=== PATIENT | female | born 1965 | race Caucasian/White ===

== ENCOUNTER 2017-10-01 13:13 | Outpatient (CLI) ==
--- NOTE | 2017-10-01 14:05 | US ---
EXAM: Right lower extremity venous doppler. HISTORY: Right leg pain and swelling. COMPARISON: 01/22/2015. TECHNIQUE: Multiple grayscale and color doppler images were obtained. FINDINGS: There is partial color flow and compressibility within the right common femoral and proxim al to mid superficial femoral veins with lack of color flow, compressibility in the distal right supe rficial femoral vein and the right popliteal vein and peroneal vein. Right posterior tibial and ante rior tibial veins are not identified. There is color flow and compressibility in the right greater s aphenous and profunda veins. There is also lack of compressibility, color flow within the superficia l vein in the right calf. IMPRESSION: Extensive right lower extremity deep vein thrombus as described. Comment: Findings were discussed with the ordering provider's office at the time of exam completion by the agricultural research technologist. Note the patient has an inferior vena cava filter.
== END 2017-10-01 13:14 | disposition home or self-care (01) ==
LOC: RAD 13:13
PROVIDERS: ATTEND Physician Assistant
DX: M79.604 Pain in right leg (principal); I82.409 Acute embolism and thrombosis of unspecified deep veins of unspecified lower extremity
CPT/HCPCS: 36415; 85610; 85730

== ENCOUNTER 2017-10-06 10:21 | Outpatient (CLI) | END 2017-10-06 10:22 | disposition home or self-care (01) | LOC: LAB 10:21 | PROVIDERS: ATTEND Physician Assistant | DX: Z51.81 Encounter for therapeutic drug level monitoring (principal); Z79.01 Long term (current) use of anticoagulants; I82.409 Acute embolism and thrombosis of unspecified deep veins of unspecified lower extremity | CPT/HCPCS: 36415; 80053; 85025; 85610 ==

== ENCOUNTER 2017-10-12 10:33 | Outpatient (CLI) | END 2017-10-12 10:34 | disposition home or self-care (01) | LOC: LAB 10:33 | PROVIDERS: ATTEND Physician Assistant | DX: Z51.81 Encounter for therapeutic drug level monitoring (principal); Z79.01 Long term (current) use of anticoagulants; R74.8 Abnormal levels of other serum enzymes | CPT/HCPCS: 36415; 80053; 85610 ==

== ENCOUNTER 2017-10-15 09:41 | Outpatient (CLI) | END 2017-10-15 09:42 | disposition home or self-care (01) | LOC: LAB 09:41 | PROVIDERS: ATTEND Physician Assistant | DX: Z51.81 Encounter for therapeutic drug level monitoring (principal); Z79.01 Long term (current) use of anticoagulants | CPT/HCPCS: 36415; 85610 ==

== ENCOUNTER 2017-10-19 09:23 | Outpatient (CLI) | END 2017-10-19 09:24 | disposition home or self-care (01) | LOC: LAB 09:23 | PROVIDERS: ATTEND Physician Assistant | DX: Z51.81 Encounter for therapeutic drug level monitoring (principal); Z79.01 Long term (current) use of anticoagulants | CPT/HCPCS: 36415; 80053; 85610 ==

== ENCOUNTER 2017-10-22 10:28 | Outpatient (CLI) | END 2017-10-22 10:29 | disposition home or self-care (01) | LOC: LAB 10:28 | PROVIDERS: ATTEND Physician Assistant | DX: Z51.81 Encounter for therapeutic drug level monitoring (principal); Z79.01 Long term (current) use of anticoagulants | CPT/HCPCS: 36415; 85610 ==

== ENCOUNTER 2017-10-29 09:56 | Outpatient (CLI) | END 2017-10-29 09:57 | disposition home or self-care (01) | LOC: LAB 09:56 | PROVIDERS: ATTEND Physician Assistant | DX: Z51.81 Encounter for therapeutic drug level monitoring (principal); Z79.01 Long term (current) use of anticoagulants; R74.8 Abnormal levels of other serum enzymes | CPT/HCPCS: 36415; 80053; 85610 ==

== ENCOUNTER 2017-11-03 16:06 | Outpatient (CLI) ==
[2017-11-04 00:10] VITALS: BMI 39.3
--- NOTE | 2017-11-04 07:57 | DI ---
Exam: Two x-rays of the chest. Comparison: 11/01/2017. Reason for exam: Dyspnea. FINDINGS: No pneumothorax, pleural effusion, or focal consolidation. The cardiac silhouette is not enlarged. The imaged osseous structures appear grossly unremarkable without acute fracture. Impression: No acute cardiopulmonary process.
== END 2017-11-03 16:07 | disposition home or self-care (01) ==
LOC: LAB 16:06
PROVIDERS: ATTEND Physician Assistant
DX: R07.9 Chest pain, unspecified (principal); R06.00 Dyspnea, unspecified; R50.9 Fever, unspecified
CPT/HCPCS: 36415; 80053; 85007; 85025; 85610; 86308; 93005; 93010

== ENCOUNTER 2017-11-03 19:14 | Inpatient (IN) ==
--- NOTE | 2017-11-03 20:00 | ED.PDOC ---
General ED Provider: Dr. NILSA MANNING Chief Complaint: Abnormal Labs Stated Complaint: Patient was in [facility] over the weekend for the chest pain, CT chest for PE negative, stress test was negative, she was still not feeling good, went to PMD, ordered out patient Labs, Low WBC, so she was sent here for further evaluation, Patient also tells she is been having fever on and off. Time Seen by Physician: 19:58 Mode of Arrival: Walk-In Information Source: Patient Primary Care Provider: ROBIN OWENS Nursing and Triage Documentation Reviewed and Agree: Yes Reviewed sepsis parameters & appropriate labs ordered?: No System Inflammatory Response Syndrome: Not Applicable Sepsis Protocol: For patient's 13 years and over: Temp is 96.8 and below OR 101 and greater Pulse >90 BPM Resp >20/minute Acutely Altered Mental Status Are patient's symptoms suggestive of a new infection, such as: -Pneumonia -Skin, Soft Tissue -Endocarditis -UTI -Bone, Joint Infection -Implantable Device -Acute Abdominal Infection -Wound Infection -Meningitis -Blood Stream Catheter Infection -Unknown Miscellaneous Complaint Exam - Febrile Illness/Adult Complaint/Exam Symptoms Are: Resolved Timing: Intermittent Episodes Lasting: Days Initial Severity: Moderate Current Severity: Mild Aggravating: Reports: None Alleviating: Reports: None Associated Signs and Symptoms: Reports: Nausea. Denies: Headache, Fluid intake , Short of air, Cough, Sore throat, Vomiting, Chills, Diaphoresis, Dysuria, Arthralgia, Stiff neck, Myalgia, Rash, Altered mental status Pseudomonas Risk Factors: Reports: None Serious Bacterial Infection Risk Factors: Reports: None Current Antibiotic Use: No Related Surgical History: None Differential Diagnoses: Abdominal Infection, Abdominal Abscess, Bacteremia Review of Systems - Review Of Systems Constitutional: Reports: Fever, Malaise, Weakness Eyes: Reports: No symptoms Ears, Nose, Mouth, Throat: Reports: No symptoms Cardiac: Reports: No symptoms, Chest pain GI: Reports: No symptoms : Reports: No symptoms Musculoskeletal: Reports: No symptoms Skin: Reports: No symptoms Neurological: Reports: No symptoms Endocrine: Reports: No symptoms Hematologic/Lymphatic: Reports: No symptoms All Other Systems: Reviewed and Negative Past Medical History - Past Medical History Previously Healthy: Yes Endocrine: Reports: Dyslipidemia Cardiovascular: Reports: None Respiratory: Reports: None Hematological: Reports: Other (DVT, PE) Gastrointestinal: Reports: GERD Genitourinary: Reports: None Neuro/Psych: Reports: Anxiety Musculoskeletal: Reports: None Cancer: Reports: None Last Menstrual Period: now - Surgical History General Surgical History: Reports: None, Other - Family History Family History: Reports: None - Social History Smoking Status: Never smoker Hx Substance Use: No Alcohol Screening: None - Immunizations Tetanus Shot up to Date: Yes Physical Exam - Physical Exam Appearance: Well-appearing, No pain distress, Well-nourished Eyes: BETH, EOMI, Conjunctiva clear ENT: Ears normal, Nose normal, Oropharynx normal Respiratory: Airway patent, Breath sounds clear, Breath sounds equal, Respirations nonlabored Cardiovascular: RRR, Pulses normal, No rub, No murmur GI/: Soft, Nontender, No masses, Bowel sounds normal, No Organomegaly Musculoskeletal: Normal strength, ROM intact, No edema, No calf tenderness Skin: Warm, Dry, Normal color Neurological: Sensation intact, Motor intact, Reflexes intact, Cranial nerves intact, Alert, Oriented Psychiatric: Affect appropriate, Mood appropriate Critical Care Note - Critical Care Note Total Time (mins): 30 Course - Course Hematology/Chemistry: 11/03/17 20:11 11/03/17 20:11 Orders, Labs, Meds: Lab Review 11/03/17 11/03/17 11/03/17 20:02 20:11 20:11 WBC 1.43 L* RBC 4.01 L Hgb 11.4 L Hct 34.2 L MCV 85.3 MCH 28.4 MCHC 33.3 RDW Coeff of Ang 14.5 Plt Count 119 L Neutrophils % (Manual) 61.0 Lymphocytes % (Manual) 28.0 Monocytes % (Manual) 4.0 Metamyelocytes % 5.0 H Myelocytes % 1.0 Promyelocytes % 1.0 H Anisocytosis Not present Sodium 138 Potassium 3.9 Chloride 106 Carbon Dioxide 23 Anion Gap 12.9 BUN 10 Creatinine 0.75 Estimated GFR (MDRD) 81.00 BUN/Creatinine Ratio 13.33 Glucose 148 H Calcium 8.8 Total Bilirubin 0.5 AST 60 H ALT 65 Alkaline Phosphatase 148 H Total Protein 6.5 Albumin 3.0 L Globulin 3.5 Albumin/Globulin Ratio 0.86 Urine Color Urine Clarity Urine pH Ur Specific Hubbard Urine Protein Urine Glucose (UA) Urine Ketones Urine Blood Urine Nitrite Urine Bilirubin Urine Urobilinogen Ur Leukocyte Esterase Urine Microscopic RBC Ur Squamous Epith Cells Influ A Molecular Assay Negative by naat Influ B Molecular Assay Negative by naat 11/03/17 20:14 WBC RBC Hgb Hct MCV MCH MCHC RDW Coeff of Ang Plt Count Neutrophils % (Manual) Lymphocytes % (Manual) Monocytes % (Manual) Metamyelocytes % Myelocytes % Promyelocytes % Anisocytosis Sodium Potassium Chloride Carbon Dioxide Anion Gap BUN Creatinine Estimated GFR (MDRD) BUN/Creatinine Ratio Glucose Calcium Total Bilirubin AST ALT Alkaline Phosphatase Total Protein Albumin Globulin Albumin/Globulin Ratio Urine Color Yellow Urine Clarity Clear Urine pH 6.0 Ur Specific [place] 1.010 Urine Protein 1+ Urine Glucose (UA) 1+ Urine Ketones Negative Urine Blood Negative Urine Nitrite Negative Urine Bilirubin Negative Urine Urobilinogen 0.2 Ur Leukocyte Esterase Negative Urine Microscopic RBC 2-5 Ur Squamous Epith Cells 0-2 Influ A Molecular Assay Influ B Molecular Assay Orders Category Date Time Status CBC W/ AUTO DIFF Stat LAB 11/03/17 20:11 Completed COMPREHENSIVE METABOLIC PANEL Stat LAB 11/03/17 20:11 Completed FLU A/B MOLECULAR Stat LAB 11/03/17 20:02 Completed MANUAL DIFFERENTIAL Stat LAB 11/03/17 20:11 Completed URINALYSIS C & S IF INDICATED Stat LAB 11/03/17 20:[address] ABDOMEN/PELVIS WO CONTRAST Stat RADS 11/03/17 19:57 Completed Vital Signs: Temp Pulse Resp BP Pulse Ox 11/03/17 19:16 99.3 F 93 H 20 141/86 H 96 Departure - Departure Time of Disposition: 22:10 Disposition: ADMITTED INPATIENT Discharge Problem: Leukopenia Qualifiers: Leukopenia type: neutropenia Neutropenia type: unspecified Qualified Code(s): D70.9 - Neutropenia, unspecified Instructions: Fever in Adults (ED) Condition: Stable Pt referred to PMD for follow-up: No IPMP verified?: No Allergies/Adverse Reactions: Allergies aspirin Adverse Reaction (Verified 11/03/17 19:35) egg Adverse Reaction (Verified 11/03/17 19:35) Penicillins Adverse Reaction (Verified 11/03/17 19:35) Home Medications: Ambulatory Orders Acetaminophen with Codeine [Tylenol #3 Tab] 1 tab PO DIRECTED PRN 11/03/17 Alprazolam 0.25 mg PO DIRECTED PRN 11/03/17 Furosemide [Lasix Tab] 20 mg PO DAILY PRN 11/03/17 Omeprazole 20 mg PO DAILY 11/03/17 Rosuvastatin Calcium [Crestor] 10 mg PO BEDTIME 11/03/17 Thyroid,Pork [[place] Thyroid] 150 mg PO DAILY 11/03/17 Tramadol HCl 50 mg PO DAILY PRN 11/03/17 Warfarin Sodium 2.5 mg PO DIRECTED 11/03/17 Warfarin Sodium [Coumadin] 5 mg PO DIRECTED 11/03/17 Warfarin Sodium [Coumadin] 7.5 mg PO DIRECTED 11/03/17 Disposition Discussed With: Patient, Family
--- NOTE | 2017-11-03 20:50 | CT ---
EXAM: CT of the abdomen pelvis without contrast History: Abdominal pain and fever. Comparison: CT abdomen pelvis 12/18/2015 Technique: Multiplanar CT images through the abdomen pelvis were obtained without the administration of IV contrast Findings: Lung bases are clear. No acute osseous abnormalities. Severe degenerative disc disease L5 -S1. Stable small hepatic cyst. Cholelithiasis again noted. Spleen is unremarkable. No peripancreatic i nflammation. The adrenal glands are within normal limits. No renal stones and no hydronephrosis. I VC filter again seen in place. No change in the prominent collateral vessels within the abdomen and right abdominal wall. Bladder is not well distended. Adnexal structures appear appropriate for patient's age. No perirect al inflammation. No free air and no ascites. Tampon seen in place within the cervical region. Scat tered colonic stool. The appendix is not well visualized but there are no secondary signs of appendic itis. Impression: 1. No acute intra-abdominal or pelvic process. 2. Cholelithiasis. 3. Stable positioning of IVC filter. 4. Stable collateral vessels. 5. Severe degenerative disc disease at L5-S1.
[2017-11-03] MEDS: TYLENOL PO PRN (23:47)
[2017-11-03] MEDS: SODIUM CHLORIDE 1,000 ML IV SCH (23:47)
[2017-11-03] MEDS: VANCOMYCIN 1 GM in SODIUM CHLORIDE 250 ML IV SCH (23:50)
[2017-11-04 00:10] VITALS: BMI 39.3
[2017-11-04] MEDS ORDERED: COUMADIN PO ONE ×2 (00:38→00:40)
[2017-11-04] MEDS ORDERED: PRILOSEC PO ONE (00:44)
[2017-11-04] MEDS ORDERED: WARFARIN SODIUM 7.5 MG PO SCH ×2 (00:45→17:00)
[2017-11-04] MEDS ORDERED: ROCEPHIN ONE (00:48)
[2017-11-04] MEDS ORDERED: SODIUM CHLORIDE 50 ML IV ONE (00:52)
[2017-11-04] MEDS: ROCEPHIN 1 GM in SODIUM CHLORIDE 50 ML IV SCH ×3 (00:52→20:54)
[2017-11-04] MEDS ORDERED: CRESTOR PO ONE (00:57)
[2017-11-04] MEDS ORDERED: CRESTOR PO SCH (01:00)
[2017-11-04] MEDS ORDERED: COUMADIN PO SCH ×2 (01:00)
[2017-11-04] MEDS ORDERED: PRILOSEC PO SCH (09:00)
[2017-11-04] MEDS: TYLENOL PO PRN ×2 (10:04→17:47)
[2017-11-04] MEDS: VANCOMYCIN 1,500 MG in SODIUM CHLORIDE 500 ML IV SCH ×2 (10:04→21:38)
[2017-11-04] MEDS: THYROID PORK PO SCH (10:17)
--- NOTE | 2017-11-04 15:53 | CT ---
EXAM: CT of the chest without contrast History: Fever and neutropenia Comparison: Chest radiograph 11/03/2017, chest CT 01/22/2015 Technique: Multiplanar CT images through the thorax were obtained without the administration of IV c ontrast Findings: Heart size is normal. No pericardial effusion. Great vessels are unremarkable. No pathologically en larged thoracic lymph nodes. No consolidation. No pleural fluid and no pneumothorax. No lung masses or lung nodules. Within the visualized upper abdomen, cholelithiasis and IVC filter. No acute osseous abnormalities. Impression: No acute intrathoracic process
[2017-11-04] MEDS: COUMADIN PO SCH ×2 (17:18→17:21)
[2017-11-04] MEDS: VANCOMYCIN 1 GM in SODIUM CHLORIDE 250 ML IV SCH (17:42)
[2017-11-04] MEDS: CRESTOR PO SCH (21:38)
[2017-11-04] MEDS: PRILOSEC PO SCH (21:38)
[2017-11-05] MEDS: TYLENOL PO PRN ×3 (00:17→20:47)
[2017-11-05] MEDS: SODIUM CHLORIDE 1,000 ML IV SCH ×3 (00:17→17:00)
[2017-11-05] MEDS: VANCOMYCIN 1,500 MG in SODIUM CHLORIDE 500 ML IV SCH ×2 (10:25→21:24)
[2017-11-05] MEDS: THYROID PORK PO SCH (10:28)
--- NOTE | 2017-11-05 11:24 | PN ---
DATE OF SERVICE: 11/04/17 SUBJECTIVE: This is a 52-year-old female admitted with febrile neutropenia. White count is 1.35 with absolute neutrophil count 50, 79 and 60. The patient is on both antibiotics Rocephin and Vancomycin prophylactically. No cough or congestion. She had a fever episode last night which was 100.3. Blood cultures have been obtained and so far are negative. REVIEW OF SYSTEMS: CONSTITUTIONAL: Fever. No chills. HEENT: Normal. ENDOCRINE: No weight gain, no weight loss. CVS: No angina symptoms. No CHF symptoms. No palpitations. No atypical chest pain for CAD. No shortness of breath. No PND, no orthopnea. RESPIRATORY: No cough, no hemoptysis. GI: No nausea, no vomiting. No abdominal pain. : No hematuria. No polyuria. MUSCULOSKELETAL: No joint swelling. PSYCHIATRIC: Not anxious. No depression. No suicidal thoughts. No homicidal thoughts. SKIN: Intact. No rash. PHYSICAL EXAMINATION: V/S: BP 150/73, respiratory rate 20, heart rate 102, temperature 101.9, saturation 96. HEENT: Normocephalic, atraumatic. Mucosa dry. NECK: Supple. No JVD, no carotid bruit. No lymphadenopathy. LUNGS: Clear to auscultation. No rales or rhonchi. HEART: S1, S2 normal. No S3. No murmur, gallop or regurgitation. ABDOMEN: Soft, nontender. Bowel sounds active. No rigidity. No rebound or guarding. No CVA tenderness. EXTREMITIES: No pedal edema. No clubbing or cyanosis MUSCULOSKELETAL: No joint swelling. NEUROLOGIC: Awake, alert, oriented times three. No focal deficit. LYMPHATIC: No lymph nodes palpable. SKIN: Intact. LABS: White count 1.375, hemoglobin 11.1, hematocrit 33.4, platelet count 125. Sodium 138, potassium 3.9, chloride 106, bicarb 23, BUN 10, creatinine 0.75. Glucose 148. ASSESSMENT: 1. FEBRILE NEUTROPENIA 2. HISTORY OF PULMONARY EMBOLISM IN 2006 3. 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 ANXIETY DISORDER PLAN: 1. Will get blood cultures 2. Continue Vancomycin and Rocephin for prophylactic treatment 3. Recent chest pain 4. Stress test and echocardiogram is negative at outside facility 5. Coumadin to be dosed per PT/INR report TIME SPENT: More than 35 minutes MTDD
[2017-11-05] MEDS ORDERED: COUMADIN PO SCH ×4 (17:00→21:00)
[2017-11-05] MEDS: ROCEPHIN 1 GM in SODIUM CHLORIDE 50 ML IV SCH (20:31)
[2017-11-05] MEDS: PRILOSEC PO SCH (20:32)
[2017-11-05] MEDS: CRESTOR PO SCH (20:32)
[2017-11-05] MEDS: XANAX PO PRN (20:38)
[2017-11-05] MEDS: ULTRAM PO PRN (21:20)
[2017-11-06] MEDS: TYLENOL PO PRN ×4 (05:19→21:00)
[2017-11-06] MEDS: THYROID PORK PO SCH (10:56)
[2017-11-06] MEDS: VANCOMYCIN 1,500 MG in SODIUM CHLORIDE 500 ML IV SCH ×2 (10:56→21:49)
[2017-11-06] MEDS: SODIUM CHLORIDE 1,000 ML IV SCH (12:13)
--- NOTE | 2017-11-06 13:29 | US ---
EXAM: Ultrasound abdomen complete HISTORY: Leukopenia, fever COMPARISON: None TECHNIQUE: Complete ultrasound abdomen was performed FINDINGS: Evaluation limited due to bowel gas shadowing. Visualized portion aorta and inferior vena c domi appear normal. Visualized portion pancreas appears normal. Portions of the pancreas obscured se condary bowel gas shadowing. Liver normal in size and echogenicity. Main portal vein patent with no rmal direction of flow. Markedly limited evaluation of the gallbladder. There appear to be multipl e shadowing gallstones with the gallbladder very poorly visualized. Cannot assess for gallbladder wa ll thickening or pericholecystic fluid. Right kidney measures 10.9 cm in length. Left kidney measur es 10.4 cm in length. No hydronephrosis. Spleen normal in size and echogenicity measuring 12.3 cm i n length. IMPRESSION: 1. Markedly limited evaluation of the gallbladder. There appear to be multiple shadowing gallstones with the gallbladder very poorly visualized. Cannot assess for gallbladder wall thickening or peric holecystic fluid. 2. Otherwise unremarkable complete ultrasound abdomen, noting bowel gas shadowing limits evaluation.
[2017-11-06] MEDS: COUMADIN PO SCH ×2 (16:20→16:21)
[2017-11-06] MEDS: ROCEPHIN 1 GM in SODIUM CHLORIDE 50 ML IV SCH (20:52)
[2017-11-06] MEDS: PRILOSEC PO SCH (20:53)
[2017-11-06] MEDS: CRESTOR PO SCH (20:53)
[2017-11-06] MEDS ORDERED: SODIUM CHLORIDE 1,000 ML IV SCH (21:30)
[2017-11-06] MEDS: XANAX PO PRN (22:02)
[2017-11-06] MEDS: ULTRAM PO PRN (22:03)
[2017-11-07] MEDS: TYLENOL PO PRN (05:58)
[2017-11-07] MEDS ORDERED: DILAUDID 1 MG/ML SYRINGE IVP PRN (07:55)
[2017-11-07] MEDS ORDERED: ATIVAN PO PRN (07:56)
[2017-11-07] MEDS: THYROID PORK PO SCH (09:35)
[2017-11-07] MEDS: VANCOMYCIN 1,500 MG in SODIUM CHLORIDE 500 ML IV SCH ×2 (09:59→23:20)
[2017-11-07] MEDS ORDERED: DILAUDID 2 MG/ML SYRINGE IVP PRN (10:06)
[2017-11-07] MEDS ORDERED: ZOSYN 3.375 GM 3.375 GM in SODIUM CHLORIDE 50 ML IV SCH (21:00)
[2017-11-07] MEDS: PRILOSEC PO SCH (21:28)
[2017-11-07] MEDS: PROTONIX PO SCH (21:28)
[2017-11-07] MEDS: CRESTOR PO SCH (21:29)
[2017-11-07] MEDS ORDERED: AZACTAM ONE (22:11)
[2017-11-07] MEDS: AZACTAM 1 GM in SODIUM CHLORIDE 50 ML IV SCH (22:14)
[2017-11-08] MEDS ORDERED: AZACTAM ONE (05:37)
[2017-11-08] MEDS: PROTONIX PO SCH ×2 (05:46→16:57)
[2017-11-08] MEDS: AZACTAM 1 GM in SODIUM CHLORIDE 50 ML IV SCH ×3 (05:47→20:40)
[2017-11-08] MEDS: VANCOMYCIN 1,500 MG in SODIUM CHLORIDE 500 ML IV SCH ×2 (09:20→21:48)
[2017-11-08] MEDS: THYROID PORK PO SCH (09:20)
[2017-11-08] MEDS: PRILOSEC PO SCH (21:25)
[2017-11-08] MEDS: CRESTOR PO SCH (21:25)
[2017-11-09] MEDS: PROTONIX PO SCH (05:34)
[2017-11-09] MEDS: AZACTAM 1 GM in SODIUM CHLORIDE 50 ML IV SCH ×2 (05:34→13:20)
[2017-11-09] MEDS: THYROID PORK PO SCH (08:17)
[2017-11-09] MEDS: VANCOMYCIN 1,500 MG in SODIUM CHLORIDE 500 ML IV SCH (09:59)
[2017-11-09 10:05] VITALS: BP 127/76; TEMP 98
[2017-11-09] MEDS: SODIUM CHLORIDE 1,000 ML IV SCH (11:54)
--- NOTE | 2017-11-09 13:05 | PN ---
DATE OF SERVICE: 11/08/17 SUBJECTIVE: The patient was admitted with fever of unknown origin and withe the neutropenic precautions. WBC went up to now 3.37. Last fever the patient had 100.1 on at 6:00pm yesterday after that no fever. The patient's antibiotics is changed to the Azactam. So far the positive findings on the patient are Cholelithiasis and Cytomegalovirus was IgG positive and the patient has IV filter to help with the clots. Coumadin Coagulopathy is present 4.28 today. REVIEW OF SYSTEMS: CONSTITUTIONAL: No fever, no chills. HEENT: Normal. ENDOCRINE: No weight gain, no weight loss. CVS: No angina symptoms. No CHF symptoms. No palpitations. No atypical chest pain for CAD. No shortness of breath. No PND, no orthopnea. RESPIRATORY: No cough, no hemoptysis. GI: No nausea, no vomiting. No abdominal pain. : No hematuria. No polyuria. MUSCULOSKELETAL: No joint swelling. PSYCHIATRIC: Not anxious. No depression. No suicidal thoughts. No homicidal thoughts. SKIN: Intact. No rash. PHYSICAL EXAMINATION: V/S: Blood pressure 127/68, respiratory rate 18, heart rate 92, temperature 98.5 with saturation is 96%. HEENT: Normocephalic, atraumatic. Mucosa dry. NECK: Supple. No JVD, no carotid bruit. No lymphadenopathy. LUNGS: Clear to auscultation. No rales or rhonchi. HEART: S1, S2 normal. No S3. No murmur, gallop or regurgitation. ABDOMEN: Soft, nontender. Bowel sounds active. No rigidity. No rebound or guarding. No CVA tenderness. EXTREMITIES: No pedal edema. No clubbing or cyanosis MUSCULOSKELETAL: No joint swelling. NEUROLOGIC: Awake, alert, oriented times three. No focal deficit. LYMPHATIC: No lymph nodes palpable. SKIN: Intact. LABS: WBC 3.52, hgb 9.4, hct 28.6, plt count 123, sodium 142, potassium 3.6, chloride 111, bicarb 24, BUN 3, creatinine 0.62, glucose 113. AST 98, ALT 174. ASSESSMENT: 1. Fever of unknown origin 2. Slight hemolysis present with decreased hemiglobin and increase LDH and liver enzymes 3. Cytomegalovirus IgG positive 4. Recent chest pain with stress test negative for coronary artery disease 5. History of DVT PE on anticoagulation, right now Coumadin Coagulopathy 6. Obesity 7. Tonsillectomy 8. Anxiety disorder 9. Hypothyroidism PLAN: 1. Continue Azactam 2. Continue to hold the Coumadin 3. Continue Vancomycin 4. Protonix PO twice a day TIME SPENT: More than 35 minutes MTDD
--- NOTE | 2017-11-09 13:37 | PN ---
DATE OF SERVICE: 11/07/17 SUBJECTIVE: The patient was admitted with fever of unknown origin. The patient is still spiking fever, last one was on 11/05/17 8:45 of 102. After that it has all been lower but today evening she had a spike at 6:00pm of 100.1. Up and about walking. Serology avendano Cytomegalovirus IgG was positive, rest of the blood work so far is negative. Blood cultures, urine, toxicology, CT chest and elevated liver enzymes are present and ultrasound of the liver and gallbladder showed some gallbladder stones. No right upper quadrant tenderness, no nausea or vomiting. So far still of unknown origin which did explain to the patient. REVIEW OF SYSTEMS: CONSTITUTIONAL: No fever, no chills. HEENT: Normal. ENDOCRINE: No weight gain, no weight loss. CVS: No angina symptoms. No CHF symptoms. No palpitations. No atypical chest pain for CAD. No shortness of breath. No PND, no orthopnea. RESPIRATORY: No cough, no hemoptysis. GI: No nausea, no vomiting. No abdominal pain. : No hematuria. No polyuria. MUSCULOSKELETAL: No joint swelling. PSYCHIATRIC: Not anxious. No depression. No suicidal thoughts. No homicidal thoughts. SKIN: Intact. No rash. PHYSICAL EXAMINATION: V/S: Blood pressure 112/73, respiratory rate 18, heart rate 98, temperature 100.1 with saturation 98%. HEENT: Normocephalic, atraumatic. Mucosa dry. NECK: Supple. No JVD, no carotid bruit. No lymphadenopathy. LUNGS: Clear to auscultation. No rales or rhonchi. HEART: S1, S2 normal. No S3. No murmur, gallop or regurgitation. ABDOMEN: Soft, nontender. Bowel sounds active. No rigidity. No rebound or guarding. No CVA tenderness. EXTREMITIES: No pedal edema. No clubbing or cyanosis MUSCULOSKELETAL: No joint swelling. NEUROLOGIC: Awake, alert, oriented times three. No focal deficit. LYMPHATIC: No lymph nodes palpable. SKIN: Intact. LABS: Sodium 139, potassium 3.8, chloride 108, bicarb 23, BUN 3, creatinine 0.65, WBC 3.48, hgb 9.7, hct 29.2, plt count 111. ASSESSMENT: 1. Febrile neutropenia, fever of unknown origin 2. Cholelithiasis 3. DVT/PE termite treater helper anticoagulation 4. Coumadin Coagulopathy 5. Recent chest pain, stress test and echocardiogram is negative for the heart problems PLAN: 1. Given her consistent fever so far the source is only the Cytomegalovirus IgG is positive. Blood cultures are negative. Abdominal ultrasound did show the Cholelithiasis but no tenderness. The patient has one more spike over night I would to transfer the patient to the infectious disease specialist in [place]. TIME SPENT: More than 35 minutes MTDD
--- NOTE | 2017-11-09 13:48 | PN ---
DATE OF SERVICE: 11/06/17 SUBJECTIVE: The patient was admitted with leukopenia and neutropenia. The patient is still having the fever. Last fever was yesterday night at 9:00pm of 102. The patient is on Vancomycin and Rocephin prophylactically because of the neutropenic precautions. Cytomegalovirus serology came positive with the IgG. Rest of the test are negative so far. REVIEW OF SYSTEMS: CONSTITUTIONAL: No fever, no chills. HEENT: Normal. ENDOCRINE: No weight gain, no weight loss. CVS: No angina symptoms. No CHF symptoms. No palpitations. No atypical chest pain for CAD. No shortness of breath. No PND, no orthopnea. RESPIRATORY: No cough, no hemoptysis. GI: No nausea, no vomiting. No abdominal pain. : No hematuria. No polyuria. MUSCULOSKELETAL: No joint swelling. PSYCHIATRIC: Not anxious. No depression. No suicidal thoughts. No homicidal thoughts. SKIN: Intact. No rash. PHYSICAL EXAMINATION: V/S: Blood pressure 131/78, respiratory rate 20, heart rate 81, temperature 98.2 and saturation 99%. HEENT: Normocephalic, atraumatic. Mucosa dry. NECK: Supple. No JVD, no carotid bruit. No lymphadenopathy. LUNGS: Clear to auscultation. No rales or rhonchi. HEART: S1, S2 normal. No S3. No murmur, gallop or regurgitation. ABDOMEN: Soft, nontender. Bowel sounds active. No rigidity. No rebound or guarding. No CVA tenderness. EXTREMITIES: No pedal edema. No clubbing or cyanosis MUSCULOSKELETAL: No joint swelling. NEUROLOGIC: Awake, alert, oriented times three. No focal deficit. LYMPHATIC: No lymph nodes palpable. SKIN: Intact. LABS: Sodium 141, potassium 3.8, chloride 111, bicarb 23, BUN 5, creatinine 0.67 and glucose 148. WBC 2.66, hgb 9.9, hct 29.6, plt count 101. ASSESSMENT: 1. Febrile neutropenia most likely viral etiology prophylactically being treated with Rocephin and Vancomycin 2. Recent chest pain, stress test and echocardiogram are negative 3. History of DVT and PE PLAN: 1. Decrease fluids to 30ml per hour 2. Continue Vancomycin and Rocephin 3. Will do PT/INR in the morning 4. Daily I&O's TIME SPENT: More than 35 minutes MTDD
--- NOTE | 2017-11-09 13:57 | PN ---
DATE OF SERVICE: 11/05/17 SUBJECTIVE: The patient did have a 99.2 today temperature and then 99.2 again, below 100 since 9:00pm yesterday. WBC went up to 1.34 today. REVIEW OF SYSTEMS: CONSTITUTIONAL: Fever, no chills. HEENT: Normal. ENDOCRINE: No weight gain, no weight loss. CVS: No angina symptoms. No CHF symptoms. No palpitations. No atypical chest pain for CAD. No shortness of breath. No PND, no orthopnea. RESPIRATORY: No cough, no hemoptysis. GI: No nausea, no vomiting. No abdominal pain. : No hematuria. No polyuria. MUSCULOSKELETAL: No joint swelling. PSYCHIATRIC: Not anxious. No depression. No suicidal thoughts. No homicidal thoughts. SKIN: Intact. No rash. PHYSICAL EXAMINATION: V/S: Blood pressure 131/74, respiratory rate 20, heart rate 97, temperature 99.2 with saturation 98 on room air. HEENT: Normocephalic, atraumatic. Mucosa dry. NECK: Supple. No JVD, no carotid bruit. No lymphadenopathy. LUNGS: Clear to auscultation. No rales or rhonchi. HEART: S1, S2 normal. No S3. No murmur, gallop or regurgitation. ABDOMEN: Soft, nontender. Bowel sounds active. No rigidity. No rebound or guarding. No CVA tenderness. EXTREMITIES: No pedal edema. No clubbing or cyanosis MUSCULOSKELETAL: No joint swelling. NEUROLOGIC: Awake, alert, oriented times three. No focal deficit. LYMPHATIC: No lymph nodes palpable. SKIN: Intact. LABS: WBC 1.34, hgb 10.6, hct 31.9, plt count 117, sodium 138, potassium 3.9, chloride 106, bicarb 29, BUN 10, creatinine 0.75, glucose 148. AST 60. ASSESSMENT: 1. Febrile neutropenia prophylactic antibiotic treatment 2. Diabetes 3. Recent chest pain, being evaluated with stress test and echocardiogram with the [facility] 4. Febrile illness 5. History of DVT, PE and IV filter placement on group home anticoagulation 6. Hypothyroidism PLAN: 1. Continue the Rocephin and Vancomycin 2. Will check for the Cytomegalovirus, [place] Virus 3. Hepatitis Panel TIME SPENT: More than 35 minutes MTDD
--- NOTE | 2017-12-29 19:37 | DS ---
DATE OF SERVICE: 11/09/17 FINAL DIAGNOSIS: 1. FEVER OF UNKNOWN ORIGIN 2. HEMOLYSIS WITH INCREASED LVH AND LIVER ENZYMES 3. CYTOMEGALOVIRUS IGG POSITIVE 4. RECENT CHEST PAIN WITH STRESS TEST NEGATIVE AT OTHER FACILITY IN [place] 5. 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 OBESITY 7. TONSILLECTOMY 8. ANXIETY 9. HYPOTHYROIDISM 10. FEBRILE LEUKOPENIA AND NEUTROPENIA 11. HISTORY OF PULMONARY EMBOLISM IN 2006 DISCHARGE INSTRUCTIONS: Discharge home. Return to [facility] for PT/INR and lab work. Followup at [facility] on 11/12/17 for followup. MEDICATIONS AT DISCHARGE: Tylenol Xanax Lasix Omeprazole Crestor Thyroid Tramadol Coumadin DO NOT TAKE YOUR COUMADIN UNTIL INSTRUCTED BY THE PHYSICIAN NEW PRESCRIPTIONS: None as cultures did not have any growth. DIET INSTRUCTIONS: Healthy Heart ACTIVITY: Get plenty of rest at home. Gradually increase activity as tolerated. DISEASE SPECIFIC EDUCATION: Fpc anticoagulation and bleeding has been discussed, verbalized understanding. Fever of unknown origin and needing further followup with the specialist has been discussed and verbalized understanding. HOSPITAL COURSE: This is a 52-year-old female came to the emergency room with fever, chest pain, shortness of breath. She was found to have severely low white count 1.43, platelets 119. INR 5.6. Chemistries were normal. With the given neutropenia and fever of 101-102, the patient was admitted to the hospital with febrile neutropenia, started on prophylactic antibiotics. The patient recently had a stress test and echocardiogram at an outside facility for chest pain. The patient is treated with Vancomycin, Azactam and breathing treatment. The patient two days ago was in a [facility] with chest pain and shortness of breath. They admitted the patient and did stress test and echo and all was negative and the patient was sent home. At home she started having fever, chills , and cough, came to the emergency room and was found to be neutropenic and thrombocytenic. All the records from [facility] were obtained and reviewed. No source of infection was found during the initial evaluation. Urine was negative. CT of abdomen and pelvis was done. The patient was given prophylactic antibiotics. Gradually the white count was getting better. The patient did have fever of 102 and 101 after two days gap. Serology showed IgG, Cytomegalovirus antibody present. Gradually the PT/INR was getting better. BUN and creatinine was normal. AST, ALT was elevated but gradually getting better. Vancomycin trough levels were done. Urine culture did not grow any pathogens. Blood did not grow any pathogens. Again with the patient care, fever of unknown origin, Cytomegalovirus IgG serology and cholelithiasis but the patient did not have any cholecystitis, complaints of right upper quadrant pain, nausea or vomiting so the patient was empirically treated and as the patient was afebrile for almost two days, the patient was discharged home. TIME SPENT: MORE THAN 65 MINUTES MTDD
== END 2017-11-09 14:40 | disposition home or self-care (01) | DRG 864 ==
LOC: ED 19:14 → MEDSURG B 22:40
PROVIDERS: ADMIT Emergency Medicine; ATTEND Emergency Medicine
DX: R50.9 Fever, unspecified (principal); D68.32 Hemorrhagic disorder due to extrinsic circulating anticoagulants; D70.9 Neutropenia, unspecified; R11.0 Nausea; R76.0 Raised antibody titer; E66.9 Obesity, unspecified; R58 Hemorrhage, not elsewhere classified; T45.515A Adverse effect of anticoagulants, initial encounter; K80.20 Calculus of gallbladder without cholecystitis without obstruction; F41.9 Anxiety disorder, unspecified; E03.9 Hypothyroidism, unspecified; Z86.718 Personal history of other venous thrombosis and embolism; Z86.711 Personal history of pulmonary embolism; Z79.01 Long term (current) use of anticoagulants; Z86.79 Personal history of other diseases of the circulatory system; Z95.828 Presence of other vascular implants and grafts
CPT/HCPCS: 36415; 80053; 80074; 80202; 81001; 82607; 82728; 82746; 83010; 83540; 83550; 83615; 84466; 85007; 85025; 85045; 85610; 85705; 86430; 86617; 86644; 86645; 86663; 87040; 87502; 87798; 99232; 99233; 99239; 99284

== ENCOUNTER 2017-11-12 11:39 | Outpatient (CLI) | END 2017-11-12 11:40 | disposition home or self-care (01) | LOC: LAB 11:39 | PROVIDERS: ATTEND Emergency Medicine | DX: Z51.81 Encounter for therapeutic drug level monitoring (principal); Z79.01 Long term (current) use of anticoagulants | CPT/HCPCS: 36415; 85610 ==

== ENCOUNTER 2017-11-17 11:04 | Outpatient (CLI) | END 2017-11-17 11:05 | disposition home or self-care (01) | LOC: LAB 11:04 | PROVIDERS: ATTEND Physician Assistant | DX: Z51.81 Encounter for therapeutic drug level monitoring (principal); Z79.01 Long term (current) use of anticoagulants; R79.89 Other specified abnormal findings of blood chemistry; E03.9 Hypothyroidism, unspecified | CPT/HCPCS: 36415; 84439; 84443; 85610 ==

== ENCOUNTER 2017-11-19 12:54 | Outpatient (CLI) ==
--- NOTE | 2017-11-20 12:32 | MRI ---
Examination: MRI of the lumbar spine without contrast 11/19/2017 Clinical information: Parasthesias. Right foot numbness. Comparison: None. TECHNIQUE: Sagittal and axial T1 and T2W imaging, sagittal STIR and coronal T2W sequences were perfo rmed. FINDINGS: The conus medullaris is normal in signal, location and morphology terminating at the L1 ve rtebral body level. Cystic signal intensity within the central aspect of the lower thoracic spinal c ord T10-T11 level has the appearance of a syrinx measuring up to 3.5 mm transverse. A dedicated MRI of the thoracic spine could be performed for further characterization. Contrast material should admi nistered at that time. There is a 2 mm retrolisthesis of L3 on L4. The lumbar vertebrae are otherwi se normal in height and AP alignment. There are chronic lower thoracic Schmorl's nodes. There is mi ld loss of disc height at L2-L3 through L4-L5 with disc desiccation. Severe loss of disc height at L 5-S1 with disc desiccation and minor endplate irregularity. There is no acute lumbar vertebral body compression fracture or abnormal marrow edema. There are enlarged gonadal veins. An IVC filter is identified. At the T10-T11 level, there is a lobular disc bulge. Right greater than left facet hypertrophy. No central spinal canal stenosis or foraminal stenosis. At the T11-T12 level, there is a moderate-sized left paracentral disc herniation which extends above and slightly below the disc level indenting the cord. There is mild left greater than right facet hy pertrophy. No central spinal canal stenosis or foraminal stenosis. At the L1-L2 level, there is minor bilateral facet arthropathy. At the L2-L3 level, there is a minimal disc bulge. There is a small left foraminal and far lateral d isc protrusion which contacts the left L2 nerve root at the lateral aspect of the neural foramen caus ing mild foraminal stenosis. Mild right greater than left hypertrophic facet arthropathy. No centra l spinal canal stenosis. At the L3-L4 level, there is a diffuse disc bulge eccentric left. There is mild left greater than ri ght facet hypertrophy. No central spinal canal stenosis. There is no overt foraminal stenosis. At the L4-L5 level, there is a diffuse disc bulge eccentric left. There is a modest sized central di sc protrusion which slightly indents the thecal sac. There is mild bilateral facet hypertrophy. No central spinal canal stenosis. There is no overt foraminal stenosis. At the L5-S1 level, there is a diffuse spondylotic disc bulge. There is a central osteophyte eccentr ic left which does not cause significant central spinal canal stenosis. There is mild right greater than left facet hypertrophy. There is mild bilateral foraminal stenosis. Impression: 1. L4-L5 central disc protrusion. No significant central spinal canal stenosis. 2. Small left L2-L3 foraminal and far lateral disc protrusion contacts the left L2 nerve root at the lateral aspect of the neural foramen causing mild foraminal stenosis. 3. Mild bilateral L5-S1 foraminal stenosis. 4. Lower thoracic spinal cord syrinx at the T10-T11 level. Consider a dedicated MRI of the thoracic spine with and without contrast for further characterization. This unexpected finding will be conveyed to the refer ring clinician. 5. T11-T12 left paracentral disc herniation indents the cord without causing central spinal canal st enosis.
== END 2017-11-19 12:55 | disposition home or self-care (01) ==
LOC: RAD 12:54
PROVIDERS: ATTEND Physician Assistant
DX: R20.2 Paresthesia of skin (principal)

== ENCOUNTER 2017-11-23 14:17 | Outpatient (CLI) | END 2017-11-23 14:18 | disposition home or self-care (01) | LOC: LAB 14:17 | PROVIDERS: ATTEND Physician Assistant | DX: E03.9 Hypothyroidism, unspecified (principal) | CPT/HCPCS: 36415; 84439; 84443; 84480; 84481 ==

== ENCOUNTER 2017-11-26 12:44 | Outpatient (CLI) ==
--- NOTE | 2017-11-27 06:16 | MRI ---
EXAM: MRI thoracic spine without and with IV contrast. DATE: 11/26/2017. HISTORY: Abnormal MRI. Parasthesias. Right foot numbness TECHNIQUE: Sagittal and axial T1W, T2W, and T1W postcontrast sequences of the thoracic spine along w ith sagittal IR and coronal T2W sequences were obtained using 1.2 June magnet. No IV contrast. Note: Grainy appearance on multiple sequences limit sensitivity of the examination. COMPARISON: MRI L-spine 19 Nov 2017. PA/lateral chest [address] chest [address] ab domen/pelvis 03 November 2016. Abnormal ultrasound 06 November 2017. FINDINGS: Sagittal counting dwarf tree grower sequence of the cervical and upper thoracic spine reveals straight ening of the upper cervical lordosis. Posterior disc/osteophyte complexes appear to cause at least m ild central canal stenoses at C4-5 and C5-6. No cervical cord edema, syrinx, myelomalacia, or neopla sm is evident. There is no Chiari 1 malformation. No distinct brain abnormality is detected. No ne ck mass or lymphadenopathy is apparent on these limited images. There are 12 thoracic vertebra with paired ribs. No acute T-spine fracture, subluxation, osseous mal ignancy, or jumped facet is evident. Small osteophytes noted at several thoracic vertebra. Chronic Schmorl's nodes are displayed at T8, T10, and T12. Bone marrow signal is overall normal. Minor disc space narrowing is seen at T3-4, T4-5, and T7-8. Conus medullaris terminates at T12-L1. Narrow T2W bright vertical band located in the center of the spinal cord extends from T2 inferior endplate to t he T4 inferior endplate. Superiorly this syrinx is 1 mm or less diameter. Between T10 midbody and T 11 midbody (a 20 mm length), the syrinx dilates to 3.5 mm maximum diameter, with tapering of each ban d. No enhancing neoplasm or abnormal enhancement is identified within the spinal cord or nerve roots . No distinct evidence of myelomalacia or cord edema. Trachea, thoracic esophagus, thoracic aorta are unremarkable. No distinct lung mass, pneumonia, or p leural effusion is detected. Heart size is upper normal. No pericardial effusion is identified. Wi thin the left lobe liver, there is a T2W bright, T1W dark, 12 x 9 mm focus best seen on axial images #29 and #30 - - which corresponds with a water density (HU = 3) focus on CT scan. Visible portions o f the spleen, adrenal glands and kidneys reveal no abnormality. Several small stones are visible in the gallbladder. CBD is 6.2 mm diameter at the pancreatic head level, without distinct focal stones or mass. No distinct intrahepatic biliary duct dilatation. Segmental analysis: C7-T1: No disc protrusion or central stenosis. T1-2: Normal, except for minor left facet arthropathy. T2-3: No disc protrusion, central stenosis or foraminal stenosis. T3-4: No disc protrusion, central stenosis or foraminal stenosis. T4-5: Minimal posterior disc bulge does not cause cord compression, central stenosis or foraminal st enosis. T5-6: Minimal posterior disc bulge does not cause cord compression, central stenosis or foraminal st enosis. T6-7: No disc protrusion, central stenosis or foraminal stenosis. There is minor facet arthropathy. T7-8: No disc protrusion, central stenosis or foraminal stenosis. T8-9: No disc protrusion, central stenosis or foraminal stenosis. T9-10: Minor posterior disc bulge does not cause cord compression, central stenosis or foraminal nilda nosis. T10-11: No disc protrusion or central stenosis. Mild facet arthropathy causes minor right foraminal narrowing. T11-12: Midline disc protrusion (4.3 mm AP x 7 mm transverse) approaches the anterior margin of the cord. No central canal stenosis. Each foramen is patent. IMPRESSIONS: 1. Thoracic cord syrinx is most pronounced at T10 and T11. No associated mass or inflammation. 2. Thoracic spine multilevel DDD and facet arthropathy. No central canal stenosis. 3. Mild bone marrow fatty infiltration 4. C-spine DDD and mild central stenoses at C4-5 and C5-6. 5. Benign appearing left hepatic lobe cyst. 6. Cholelithiasis. Distal CBD mild dilatation, but no definitive choledocholithiasis. If symptoms warrant further evaluation, an MRCP could be obtained.
== END 2017-11-26 12:45 | disposition home or self-care (01) ==
LOC: RAD 12:44
PROVIDERS: ATTEND Physician Assistant
DX: Z51.81 Encounter for therapeutic drug level monitoring (principal); Z79.01 Long term (current) use of anticoagulants; R93.8 Abnormal findings on diagnostic imaging of other specified body structures; E03.9 Hypothyroidism, unspecified
CPT/HCPCS: 36415; 82565

== ENCOUNTER 2017-11-30 12:19 | Outpatient (CLI) ==
--- NOTE | 2017-11-30 15:49 | US ---
EXAM: Left lower extremity venous Doppler HISTORY: Concern for DVT with left leg edema. COMPARISON: Venous Doppler 10/01/2017 TECHNIQUE: Sonographic and Doppler evaluation of the left lower extremity vessels from the common fe moral through the anterior tibial veins were obtained. Augmentation and compression techniques were also performed. FINDINGS: There is spontaneous Doppler flow seen in the left lower extremity veins from the common f emoral through the anterior tibial veins. There is normal compression and augmentation throughout th e lower extremity veins. Sonographic appearance of the soft tissues are unremarkable. IMPRESSION: No left lower extremity thrombus
== END 2017-11-30 12:20 | disposition home or self-care (01) ==
LOC: LAB 12:19
PROVIDERS: ATTEND Physician Assistant
DX: Z51.81 Encounter for therapeutic drug level monitoring (principal); Z79.01 Long term (current) use of anticoagulants; R60.0 Localized edema; E03.9 Hypothyroidism, unspecified
CPT/HCPCS: 36415; 84443; 85610

== ENCOUNTER 2017-12-04 08:51 | Outpatient (CLI) | END 2017-12-04 08:52 | disposition home or self-care (01) | LOC: LAB 08:51 | PROVIDERS: ATTEND Physician Assistant | DX: Z51.81 Encounter for therapeutic drug level monitoring (principal); Z79.01 Long term (current) use of anticoagulants; K80.20 Calculus of gallbladder without cholecystitis without obstruction; E03.9 Hypothyroidism, unspecified | CPT/HCPCS: 36415; 80053; 84443; 85025; 85610 ==

== ENCOUNTER 2017-12-11 10:38 | Outpatient (CLI) | END 2017-12-11 10:39 | disposition home or self-care (01) | LOC: LAB 10:38 | PROVIDERS: ATTEND Physician Assistant | DX: Z51.81 Encounter for therapeutic drug level monitoring (principal); Z79.01 Long term (current) use of anticoagulants; M79.604 Pain in right leg; M79.605 Pain in left leg | CPT/HCPCS: 36415; 85610; 86430 ==

== ENCOUNTER 2017-12-15 09:37 | Outpatient (CLI) | END 2017-12-15 09:38 | disposition home or self-care (01) | LOC: LAB 09:37 | PROVIDERS: ATTEND Physician Assistant | DX: E03.9 Hypothyroidism, unspecified (principal); Z51.81 Encounter for therapeutic drug level monitoring; Z79.01 Long term (current) use of anticoagulants | CPT/HCPCS: 36415; 84443; 85610 ==

== ENCOUNTER 2017-12-21 13:39 | Outpatient (CLI) | END 2017-12-21 13:40 | disposition home or self-care (01) | LOC: LAB 13:39 | PROVIDERS: ATTEND Physician Assistant | DX: Z51.81 Encounter for therapeutic drug level monitoring (principal); Z79.01 Long term (current) use of anticoagulants; E03.9 Hypothyroidism, unspecified | CPT/HCPCS: 36415; 84443; 85610 ==

== ENCOUNTER 2017-12-29 11:43 | Outpatient (CLI) | END 2017-12-29 11:44 | disposition home or self-care (01) | LOC: LAB 11:43 | PROVIDERS: ATTEND Physician Assistant | DX: Z51.81 Encounter for therapeutic drug level monitoring (principal); Z79.01 Long term (current) use of anticoagulants; E03.9 Hypothyroidism, unspecified | CPT/HCPCS: 36415; 84443; 85610 ==

== ENCOUNTER 2018-01-07 09:04 | Outpatient (CLI) | END 2018-01-07 09:05 | disposition home or self-care (01) | LOC: LAB 09:04 | PROVIDERS: ATTEND Physician Assistant | DX: E03.9 Hypothyroidism, unspecified (principal); Z51.81 Encounter for therapeutic drug level monitoring; Z79.01 Long term (current) use of anticoagulants | CPT/HCPCS: 36415; 84443; 85610 ==

== ENCOUNTER 2018-01-15 13:39 | Outpatient (CLI) | END 2018-01-15 13:40 | disposition home or self-care (01) | LOC: LAB 13:39 | PROVIDERS: ATTEND Physician Assistant | DX: Z51.81 Encounter for therapeutic drug level monitoring (principal); Z79.01 Long term (current) use of anticoagulants; E03.9 Hypothyroidism, unspecified | CPT/HCPCS: 36415; 84443; 85610 ==

== ENCOUNTER 2018-01-22 12:31 | Outpatient (CLI) | END 2018-01-22 12:32 | disposition home or self-care (01) | LOC: LAB 12:31 | PROVIDERS: ATTEND Physician Assistant | DX: E03.9 Hypothyroidism, unspecified (principal); Z51.81 Encounter for therapeutic drug level monitoring; Z79.01 Long term (current) use of anticoagulants | CPT/HCPCS: 36415; 84443; 85610 ==

== ENCOUNTER 2018-02-03 15:12 | Outpatient (CLI) | END 2018-02-03 15:13 | disposition home or self-care (01) | LOC: LAB 15:12 | PROVIDERS: ATTEND Physician Assistant | DX: Z51.81 Encounter for therapeutic drug level monitoring (principal); Z79.01 Long term (current) use of anticoagulants | CPT/HCPCS: 36415; 85610 ==

== ENCOUNTER 2018-02-04 14:51 | Outpatient (CLI) ==
--- NOTE | 2018-02-04 16:00 | US ---
EXAM: Right lower extremity venous Doppler History: Right lower extremity edema. Comparison: Right lower extremity venous Doppler 10/01/2017 Technique: Multiple sonographic images through the right lower extremity were obtained. Color duple x Doppler was used to interrogate vascular flow. Findings: Partial flow with partial compression involving the right common femoral, greater saphenous , profunda, superficial femoral and popliteal veins. No flow with no compression involving the right peroneal vein. Impression: Right lower extremity venous thrombosis, similar to the prior study. Results were communicated to Brooklynn Quispe by the technologist after the examination.
== END 2018-02-04 14:52 | disposition home or self-care (01) ==
LOC: RAD 14:51
PROVIDERS: ATTEND Physician Assistant
DX: R60.0 Localized edema (principal)

== ENCOUNTER 2018-02-10 10:15 | Outpatient (CLI) | END 2018-02-10 10:16 | disposition home or self-care (01) | LOC: LAB 10:15 | PROVIDERS: ATTEND Physician Assistant | DX: D64.9 Anemia, unspecified (principal); R73.9 Hyperglycemia, unspecified; Z51.81 Encounter for therapeutic drug level monitoring; Z79.01 Long term (current) use of anticoagulants; E03.9 Hypothyroidism, unspecified | CPT/HCPCS: 36415; 83036; 84443; 85025; 85610 ==

== ENCOUNTER 2018-02-25 16:12 | Outpatient (CLI) | END 2018-02-25 16:13 | LOC: LAB 16:12 | PROVIDERS: ATTEND Physician Assistant | DX: Z51.81 Encounter for therapeutic drug level monitoring (principal); Z79.01 Long term (current) use of anticoagulants | CPT/HCPCS: 36415; 85610 ==

== ENCOUNTER 2018-03-04 08:48 | Outpatient (CLI) | END 2018-03-04 08:49 | disposition home or self-care (01) | LOC: LAB 08:48 | PROVIDERS: ATTEND Physician Assistant | DX: Z51.81 Encounter for therapeutic drug level monitoring (principal); Z79.01 Long term (current) use of anticoagulants | CPT/HCPCS: 36415; 85610 ==

== ENCOUNTER 2018-03-11 14:53 | Outpatient (CLI) | END 2018-03-11 14:54 | disposition home or self-care (01) | LOC: LAB 14:53 | PROVIDERS: ATTEND Physician Assistant | DX: Z51.81 Encounter for therapeutic drug level monitoring (principal); Z79.01 Long term (current) use of anticoagulants | CPT/HCPCS: 36415; 85610 ==

== ENCOUNTER 2018-03-19 12:06 | Outpatient (CLI) | END 2018-03-19 12:07 | disposition home or self-care (01) | LOC: LAB 12:06 | PROVIDERS: ATTEND Physician Assistant | DX: E78.5 Hyperlipidemia, unspecified (principal); E78.2 Mixed hyperlipidemia; Z51.81 Encounter for therapeutic drug level monitoring; Z79.01 Long term (current) use of anticoagulants | CPT/HCPCS: 36415; 80053; 80061; 84443; 85610 ==

== ENCOUNTER 2018-03-30 09:07 | Outpatient (CLI) | END 2018-03-30 09:08 | disposition home or self-care (01) | LOC: LAB 09:07 | PROVIDERS: ATTEND Physician Assistant | DX: Z51.81 Encounter for therapeutic drug level monitoring (principal); Z79.01 Long term (current) use of anticoagulants | CPT/HCPCS: 36415; 85610 ==

== ENCOUNTER 2018-03-31 10:08 | Outpatient (CLI) | END 2018-03-31 10:09 | disposition home or self-care (01) | LOC: LAB 10:08 | PROVIDERS: ATTEND Physician Assistant | DX: I82.509 Chronic embolism and thrombosis of unspecified deep veins of unspecified lower extremity (principal) | CPT/HCPCS: 36415; 85610 ==

== ENCOUNTER 2018-04-01 10:17 | Outpatient (CLI) | END 2018-04-01 10:18 | disposition home or self-care (01) | LOC: LAB 10:17 | PROVIDERS: ATTEND Physician Assistant | DX: I82.509 Chronic embolism and thrombosis of unspecified deep veins of unspecified lower extremity (principal) | CPT/HCPCS: 36415; 85610 ==

== ENCOUNTER 2018-04-07 13:44 | Outpatient (CLI) | END 2018-04-07 13:45 | disposition home or self-care (01) | LOC: LAB 13:44 | PROVIDERS: ATTEND Physician Assistant | DX: Z51.81 Encounter for therapeutic drug level monitoring (principal); Z79.01 Long term (current) use of anticoagulants | CPT/HCPCS: 36415; 85610 ==

== ENCOUNTER 2018-04-09 16:22 | Outpatient (CLI) | END 2018-04-09 16:23 | disposition home or self-care (01) | LOC: LAB 16:22 | PROVIDERS: ATTEND Physician Assistant | DX: I82.509 Chronic embolism and thrombosis of unspecified deep veins of unspecified lower extremity (principal) | CPT/HCPCS: 36415; 85610 ==

== ENCOUNTER 2018-04-13 08:59 | Outpatient (CLI) | END 2018-04-13 09:00 | disposition home or self-care (01) | LOC: LAB 08:59 | PROVIDERS: ATTEND Physician Assistant | DX: Z51.81 Encounter for therapeutic drug level monitoring (principal); Z79.01 Long term (current) use of anticoagulants | CPT/HCPCS: 36415; 85610 ==

== ENCOUNTER 2018-04-16 09:11 | Outpatient (CLI) | END 2018-04-16 09:12 | disposition home or self-care (01) | LOC: LAB 09:11 | PROVIDERS: ATTEND Physician Assistant | DX: Z51.81 Encounter for therapeutic drug level monitoring (principal); Z79.01 Long term (current) use of anticoagulants | CPT/HCPCS: 36415; 85610 ==

== ENCOUNTER 2018-04-20 08:48 | Outpatient (CLI) | END 2018-04-20 08:49 | disposition home or self-care (01) | LOC: LAB 08:48 | PROVIDERS: ATTEND Physician Assistant | DX: Z51.81 Encounter for therapeutic drug level monitoring (principal); Z79.01 Long term (current) use of anticoagulants | CPT/HCPCS: 36415; 85610 ==

== ENCOUNTER 2018-04-23 11:40 | Outpatient (CLI) | END 2018-04-23 11:41 | disposition home or self-care (01) | LOC: LAB 11:40 | PROVIDERS: ATTEND Physician Assistant | DX: Z51.81 Encounter for therapeutic drug level monitoring (principal); Z79.01 Long term (current) use of anticoagulants | CPT/HCPCS: 36415; 85610 ==

== ENCOUNTER 2018-04-29 14:46 | Outpatient (CLI) | END 2018-04-29 14:47 | disposition home or self-care (01) | LOC: LAB 14:46 | PROVIDERS: ATTEND Physician Assistant | DX: Z51.81 Encounter for therapeutic drug level monitoring (principal); Z79.01 Long term (current) use of anticoagulants | CPT/HCPCS: 36415; 85610 ==

== ENCOUNTER 2018-04-30 09:03 | Outpatient (CLI) | END 2018-04-30 09:04 | disposition home or self-care (01) | LOC: LAB 09:03 | PROVIDERS: ATTEND Physician Assistant | DX: Z51.81 Encounter for therapeutic drug level monitoring (principal); Z79.899 Other long term (current) drug therapy | CPT/HCPCS: 36415; 85610 ==

== ENCOUNTER 2018-05-01 10:43 | Outpatient (CLI) | END 2018-05-01 10:44 | disposition home or self-care (01) | LOC: LAB 10:43 | PROVIDERS: ATTEND Physician Assistant | DX: Z51.81 Encounter for therapeutic drug level monitoring (principal); Z79.899 Other long term (current) drug therapy | CPT/HCPCS: 36415; 85610 ==

== ENCOUNTER 2018-05-11 08:36 | Outpatient (CLI) | END 2018-05-11 08:37 | disposition home or self-care (01) | LOC: LAB 08:36 | PROVIDERS: ATTEND Physician Assistant | DX: Z51.81 Encounter for therapeutic drug level monitoring (principal); Z79.01 Long term (current) use of anticoagulants | CPT/HCPCS: 36415; 85610 ==

== ENCOUNTER 2018-05-14 11:42 | Outpatient (CLI) | END 2018-05-14 11:43 | disposition home or self-care (01) | LOC: LAB 11:42 | PROVIDERS: ATTEND Physician Assistant | DX: Z51.81 Encounter for therapeutic drug level monitoring (principal); Z79.01 Long term (current) use of anticoagulants | CPT/HCPCS: 36415; 85610 ==

== ENCOUNTER 2018-05-20 10:47 | Outpatient (CLI) | END 2018-05-20 10:48 | disposition home or self-care (01) | LOC: LAB 10:47 | PROVIDERS: ATTEND Physician Assistant | DX: Z51.81 Encounter for therapeutic drug level monitoring (principal); Z79.01 Long term (current) use of anticoagulants | CPT/HCPCS: 36415; 85610 ==

== ENCOUNTER 2018-05-24 12:42 | Outpatient (CLI) | END 2018-05-24 12:43 | disposition home or self-care (01) | LOC: LAB 12:42 | PROVIDERS: ATTEND Physician Assistant | DX: I82.509 Chronic embolism and thrombosis of unspecified deep veins of unspecified lower extremity (principal) | CPT/HCPCS: 36415; 85610 ==

== ENCOUNTER 2018-06-01 12:28 | Outpatient (CLI) | END 2018-06-01 12:29 | disposition home or self-care (01) | LOC: LAB 12:28 | PROVIDERS: ATTEND Physician Assistant | DX: Z51.81 Encounter for therapeutic drug level monitoring (principal); Z79.01 Long term (current) use of anticoagulants | CPT/HCPCS: 36415; 85610 ==

== ENCOUNTER 2018-06-08 13:11 | Outpatient (CLI) | END 2018-06-08 13:12 | disposition home or self-care (01) | LOC: LAB 13:11 | PROVIDERS: ATTEND Physician Assistant | DX: Z51.81 Encounter for therapeutic drug level monitoring (principal); Z79.01 Long term (current) use of anticoagulants | CPT/HCPCS: 36415; 85610 ==

== ENCOUNTER 2018-07-21 13:29 | Outpatient (CLI) | END 2018-07-21 13:30 | disposition home or self-care (01) | LOC: LAB 13:29 | PROVIDERS: ATTEND Physician Assistant | DX: Z51.81 Encounter for therapeutic drug level monitoring (principal); Z79.01 Long term (current) use of anticoagulants | CPT/HCPCS: 36415; 85610 ==

== ENCOUNTER 2018-08-06 15:02 | Outpatient (CLI) | END 2018-08-06 15:03 | disposition home or self-care (01) | LOC: LAB 15:02 | PROVIDERS: ATTEND Physician Assistant | DX: Z51.81 Encounter for therapeutic drug level monitoring (principal); Z79.01 Long term (current) use of anticoagulants | CPT/HCPCS: 36415; 85610 ==